=== PATIENT | female | born 1990 | race Caucasian/White ===

== ENCOUNTER 2019-10-26 21:49 | Emergency (ER) | payer MEDICAID ==
--- NOTE | 2019-10-27 00:55 | ER Document Report ---
ED General - General Chief Complaint: Needle Stick Exposure Stated Complaint: CHEST PAIN Time Seen by Provider: 10/27/19 00:36 [facility] - Follow up tomorrow Notes: Patient is a 29-year-old female that comes emergency department with 2 complaints. First complaint is for the past 3 days she will have intermittent pain in the center of her chest and towards the left side. She denies shortness of breath, nausea or vomiting, cough, there is been no measured fever, she denies injury. Pain is worse with movement. Second complaint is she states she injects meth, she states that she thinks her needle got swapped with her friends and she is worried that she had a needlestick exposure. She states she takes medications for anxiety/depression and ADHD, denies medical history otherwise. Denies other recreational drugs. TRAVEL OUTSIDE OF THE [place] IN LAST 30 DAYS: No - Related Data Allergies/Adverse Reactions: morphine Allergy (Verified 10/26/19 22:34) Home Medications: xanax prn anxiety Past Medical History - General Information source: Patient - Social History Smoking Status: Current Every Day Smoker Smoking Education Provided: Yes - <3 min Frequency of alcohol use: None Drug Abuse: Methamphetamine Lives with: Spouse/Significant other Family History: Reviewed & Not Pertinent Patient has suicidal ideation: No Patient has homicidal ideation: No Surgical Hx: Negative - Immunizations Immunizations up to date: Yes Hx Diphtheria, Pertussis, Tetanus Vaccination: Yes Review of Systems - Review of Systems Constitutional: See HPI EENT: No symptoms reported Cardiovascular: See HPI Respiratory: No symptoms reported Gastrointestinal: No symptoms reported Genitourinary: No symptoms reported Female Genitourinary: No symptoms reported Musculoskeletal: No symptoms reported Skin: No symptoms reported Hematologic/Lymphatic: No symptoms reported Neurological/Psychological: No symptoms reported Physical Exam - Vital signs Vitals: Temp Pulse Resp BP Pulse Ox 97.8 F 73 20 148/58 H 99 10/26/19 22:11 10/26/19 22:11 10/26/19 22:11 10/26/19 22:11 10/26/19 22:11 - Notes Notes: GENERAL: Alert, interacts well. HEAD: Normocephalic, atraumatic. EYES: Pupils equal, round, and reactive to light. Extraocular movements intact. ENT: Oral mucosa moist, tongue midline. Oropharynx unremarkable. Airway patent. NECK: Full range of motion. Supple. Trachea midline. LUNGS: Clear to auscultation bilaterally, no wheezes, rales, or rhonchi. No respiratory distress. Mild tenderness over the left sternal border, this is specific and reproducible, slightly worse with movement. Otherwise unremarkable with no erythema, induration, fluctuance, swelling, or other concerning findings. HEART: Regular rate and rhythm. No murmur ABDOMEN: Soft, non-tender. Non-distended. Bowel sounds present in all 4 quadrants. GENITOURINARY: Deferred EXTREMITIES: Moves all 4 extremities spontaneously. No edema, normal radial and dorsalis pedis pulses bilaterally. No cyanosis. BACK: no cervical, thoracic, lumbar midline tenderness. No saddle anesthesia, normal distal neurovascular exam. Moves all extremities in full range of motion. NEUROLOGICAL: Alert and oriented x3. Normal speech. Cranial nerves II through XII grossly intact. PSYCH: Restless but cooperative SKIN: Warm, dry, normal turgor. No rashes or lesions noted. Course - Re-evaluation Re-evalutation: Patient is anxious but well-appearing. She has mild tenderness with palpation of the chest wall, this is in the same location of her pain, she states this is consistent with her pain. Pain is worse with movement. Appears to be simple chest wall pain. EKG unremarkable, CBC, chemistry, troponin unremarkable, vital signs unremarkable. HIV negative hepatitis panel pending. Patient refuses a chest x-ray, I discussed the importance of this and chest pain rule out but she still refused. She does not have hypoxia, tachycardia, and she has clear lungs. Discussed results with patient. Discussed chest wall pain, discussed extreme risks of IV drug abuse and imminent if she continues to use. Patient does state understanding and states she just started using and plans to quit. Patient also states that she wants full antiviral coverage for possible needlestick/blood-borne illness. Patient given initial antivirals here for 3 d ays and the remaining 25 days prescribed along with referral to the health department for additional testing with current pending tests. Discussed details, follow-up, and strict return precautions. Patient states appreciation and agreement. Stable at time of discharge. - Vital Signs Vital signs: Temp Pulse Resp BP Pulse Ox 97.6 F 90 20 108/80 98 10/27/19 04:01 10/27/19 04:01 10/26/19 22:11 10/27/19 04:01 10/27/19 04:01 - Laboratory Result Diagrams: 10/27/19 02:00 10/27/19 02:00 Laboratory results interpreted by me: 10/27/19 02:00 WBC 10.8 H Lymph % (Auto) 51.4 H Absolute Lymphs (auto) 5.5 H Seg Neutrophils % 40.8 L - EKG Interpretation by Me Additional EKG results interpreted by me: EKG shows sinus rhythm at a rate of 65, normal axis, no T wave inversions or ST segment changes in consecutive leads. Machine reads as normal. Discharge - Discharge Clinical Impression: Needlestick injury accident, Chest wall pain Condition: Stable Disposition: HOME, SELF-CARE Additional Instructions: Your initial testing does not show any concerning findings, because of the suspected needlestick injury and your preference for antiviral coverage take the prescriptions as prescribed, follow-up closely with the health department, call the health department today to establish your follow-up testing. Take Phenergan if needed for nausea. Return for any concerning symptoms including difficulty breathing, fever, passing out, or any other concerning symptoms. Prescriptions: Raltegravir Potassium [Isentress 400 mg Tablet] 400 mg PO BID 25 Days #50 tablet Promethazine HCl [Phenergan 25 mg Tablet] 25 mg PO Q6H PRN #20 tablet PRN Reason: Emtricitabine/Tenofovir [Truvada Tablet] 200 mg PO DAILY 25 Days #25 tablet Ref[facility]: [facility] [NO LOCAL MD] - Follow up tomorrow
[2019-10-27 02:11] LABS: ABSOLUTE BASOPHILS # (AUTO) 0.1 10^3/uL (0.0-0.2); ABSOLUTE EOSINOPHILS # (AUTO) 0.2 10^3/uL (0.0-0.6); ABSOLUTE LYMPHOCYTES (AUTO) 5.5 10^3/uL (0.5-4.7); ABSOLUTE MONOCYTES (AUTO) 0.5 10^3/uL (0.1-1.4); ABSOLUTE NEUT (AUTO) 4.4 10^3/uL (1.7-8.2); BASOPHILS % (AUTO) 0.5 % (0-2); EOSINOPHILS % (AUTO) 2.2 % (0-6); HEMATOCRIT 38.7 % (36.0-47.0); HEMOGLOBIN 13.4 g/dL (12.0-15.5); LYMPHOCYTES % (AUTO) 51.4 % (13-45); MEAN CORPUSCULAR HGB CONC 34.7 g/dL (32.0-36.0); MEAN CORPUSCULAR VOLUME 95 fl (80-97); MONOCYTES % (AUTO) 5.1 % (3-13); PLATELET COUNT 266 10^3/uL (150-450); RED BLOOD COUNT 4.08 10^6/uL (3.72-5.28); RED CELL DISTRIBUTION WIDTH 12.7 % (11.5-14.0); SEGMENTED NEUTROPHILS % (AUTO) 40.8 % (42-78); TOTAL CELLS COUNTED % (AUTO) 100 %; WHITE BLOOD COUNT 10.8 10^3/uL (4.0-10.5)
[2019-10-27 02:30] LABS: ALBUMIN 4.3 g/dL (3.5-5.0); ALKALINE PHOSPHATASE 67 U/L (38-126); ANION GAP 9 (5-19); ASPARTATE AMINO TRANSFERASE 25 U/L (14-36); BILIRUBIN,DIRECT 0.1 mg/dL (0.0-0.4); BILIRUBIN,TOTAL 0.5 mg/dL (0.2-1.3); BLOOD UREA NITROGEN 11 mg/dL (7-20); CALCIUM 9.6 mg/dL (8.4-10.2); CARBON DIOXIDE 26 mmol/L (22-30); CHLORIDE 107 mmol/L (98-107); GLUCOSE 89 mg/dL (75-110); POTASSIUM 4.4 mmol/L (3.6-5.0); TOTAL PROTEIN 7.3 g/dL (6.3-8.2)
[2019-10-27] MEDS ORDERED: EMTRICITABINE/TENOFOVIR 200-300 MG TAB (3 TAB/ER DISP) PO PRN (03:40)
[2019-10-27] MEDS ORDERED: RALTEGRAVIR 400 MG TAB (6 TAB/ER DISP) PO PRN (03:40)
[2019-10-27] MEDS ORDERED: EMTRICITABINE/TENOFOVIR 200-300 MG TAB (3 TAB/ER DISP) ONE (03:40)
[2019-10-27] MEDS ORDERED: RALTEGRAVIR 400 MG TAB (6 TAB/ER DISP) ONE (03:40)
[2019-10-27 04:04] VITALS: BP 108/80
--- NOTE | 2019-10-27 23:38 | EKG REPORT ---
SEVERITY:- NORMAL ECG - SINUS RHYTHM : Confirmed by: Cuco Bustillo 27-Oct-2019 23:37:24
[2019-10-28 08:37] LABS: HEPATITS B SURFACE ANTIGEN Negative (Negative)
[2019-10-29 07:04] LABS: HEPATITIS C VIRUS ANTIBODY <0.1 s/co ratio (0.0-0.9)
== END 2019-10-27 04:06 | disposition home or self-care (01) ==
LOC: ER 21:49
DX: R07.9 Chest pain, unspecified (principal); T75.89XA Other specified effects of external causes, initial encounter; W46.1XXA Contact with contaminated hypodermic needle, initial encounter; F17.200 Nicotine dependence, unspecified, uncomplicated; Z88.6 Allergy status to analgesic agent
CPT/HCPCS: 36415; 80053; 80074; 84484; 84703; 85025; 86701; 93005; 93010; 99283